=== PATIENT | male | born 1990 | race African-American/Black ===

== ENCOUNTER 2021-03-08 21:29 | Emergency (ER) ==
[2021-03-09 14:29] LABS: SARS-CoV-2 PCR by NAA DETECTED (NotDetected)
== END 2021-03-08 22:09 | disposition home or self-care (01) ==
LOC: ERS 21:29
DX: U07.1 COVID-19 (principal); F17.290 Nicotine dependence, other tobacco product, uncomplicated
CPT/HCPCS: 99283; U0003; U0005